=== PATIENT | male | born 1975 | race Two or more races ===

== ENCOUNTER 2018-07-13 17:59 | Emergency (ER) | payer OTHER ==
[2018-07-13] MEDS ORDERED: IBUPROFEN 600 MG TAB PO ONE (18:41)
--- NOTE | 2018-07-13 18:58 | EDPHY ---
H & P Time Seen by Provider: 07/13/18 18:02 HPI/ROS: CHIEF COMPLAINT: Right-sided back pain History by patient, and seen with phone snow ranger HISTORY OF PRESENT ILLNESS: 42-year-old otherwise healthy man presents complaining of pain on the right side of his back after he fell off of 3 ft truck while hauling wood where he landed on top of the wood approximately 4 hr prior to arrival. The truck was not moving. He denies hitting his head or losing consciousness. He denies neck pain, chest pain or abdominal pain or other injury. His back pain is slightly pleuritic. He denies any shortness of breath. He took some Tylenol with minimal relief. REVIEW OF SYSTEMS: As in HPI, and all other systems reviewed and are negative Smoking Status: Never smoked Physical Exam: General Appearance: Alert, nontoxic-appearing speaking full sentences. Head: normocephalic, atraumatic Eyes: Pupils equal and round, reactive to light, no pallor or injection. Extraocular movements intact Mouth: Mucous membranes moist. Respiratory: Normal, effort, lungs are clear to auscultation. No wheezes, rales or rhonchi. No sternal tenderness, positive tenderness to right lower ribs anteriorly Cardiovascular: Regular rate and rhythm. S1, S2, no murmurs, gallops or rubs appreciated Gastrointestinal: Abdomen is soft and nontender, no masses, bowel sounds normal. Back: Positive linear abrasion else of her right lower ribs posteriorly with marked tenderness, no step-off or crepitus, positive right CVA tenderness, Neurological: Awake, alert and oriented x 3, no pronator drift, normal gait, no pronator drift Skin: Warm and dry, no rashes. Musculoskeletal: No deformities or tenderness. Full range of motion Extremities: no edema, no tenderness, DP2+ bilat Psychiatric: Patient has normal affect, there is no agitation. Constitutional: Initial Vital Signs Temperature (C) 36.8 C 07/13/18 18:31 Heart Rate 82 07/13/18 18:31 Respiratory Rate 16 07/13/18 18:31 Blood Pressure 184/101 H 07/13/18 18:31 O2 Sat (%) 94 07/13/18 18:31 O2 Delivery Mode Room Air Allergies/Adverse Reactions: No Known Allergies Allergy (Verified 07/13/18 18:30) Home Medications: Medication Instructions Recorded Hydrocodone/APAP 5/325 [[place] 1 - 2 tab PO Q4H PRN #10 tab 07/13/18 5/325 (*)] MDM/Departure - MDM Imaging Results: Imaging Impressions Chest X-Ray 07/13/18 18:40 Impression: Negative chest. Consider rib detail films as clinically appropriate. Abdomen CT 07/13/18 19:07 Impression: Fractures of the posterior aspects of the right 10th, 11th, and 12th ribs, without pneumothorax or pleural hematoma. Results called to Dr. Buitrago at 8:00 p.m. Imaging: Discussed imaging studies w/ hand cloth examiner Radiologist, I viewed and interpreted images myself Medications Given: Discontinued Medications Diphtheria/Tetanus/Acell Pertussis (Boostrix) 0.5 ml IM .ONCE ONE Stop: 07/13/18 19:22 Last Admin: 07/13/18 19:24 Dose: 0.5 ml Ibuprofen (Motrin) 600 mg PO EDNOW ONE Stop: 07/13/18 18:42 Last Admin: 07/13/18 19:09 Dose: 600 mg ED Course/Re-evaluation: 42-year-old man presents with ongoing pain after falling off a truck landing on some wood. Was given ibuprofen in the ER for pain. X-ray is concerning for right lower rib fracture. There is no evidence of hemo or pneumothorax. UA was positive for blood and therefore we performed a CT scan to evaluate for internal injury. I discussed the CT with the radiologist. CT revealed 3 lower rib fractures but no hemopneumothorax or parenchymal injury. Patient remained hemodynamically stable. Will discharge home with pain control. We discussed home care return precautions. - Depart Disposition: Home, Routine, Self-Care Clinical Impression: Multiple rib fractures Qualifiers: Encounter type: initial encounter Fracture type: closed Laterality: right Qualified Code(s): S22.41XA - Multiple fractures of ribs, right side, initial encounter for closed fracture Condition: Fair Instructions: Rib Fracture (ED) Additional Instructions: You were seen by Dr. Allyson Buitrago today. You have broken ribs. Please take ibuprofen and pain medicine as needed. Return immediately if you develop any difficulty breathing, fever or other new problems. Return for any worsening or new concerns. Stand Alone Forms: Work Limited Duty, Work Excuse Prescriptions: Hydrocodone/APAP 5/325 [[place] 5/325 (*)] 1 - 2 tab PO Q4H PRN #10 tab PRN Reason: Pain, Moderate Referrals: NONE *PRIMARY CARE P,. [Primary Care Provider] - As per Instructions Print Language: Indian
[2018-07-13] MEDS ORDERED: IOPAMIDOL (ISOVUE-300) 100 ML BTL ONE (19:12)
[2018-07-13] MEDS ORDERED: TDAP ADULT 0.5 ML INJ (BOOSTRIX) IM ONE (19:21)
[2018-07-13] MEDS ORDERED: HYDROCOD/APAP 5/325 PREPACK#6 BTL TAKEHOME ONE (20:25)
[2018-07-13 21:10] VITALS: BP 179/118
== END 2018-07-13 20:47 | disposition home or self-care (01) ==
LOC: CED 17:59
DX: S22.41XA Multiple fractures of ribs, right side, initial encounter for closed fracture (principal); W17.89XA Other fall from one level to another, initial encounter; Y99.0 Civilian activity done for income or pay
CPT/HCPCS: 71046-PO; 74177-PO; 80048-ER; 85025-QW-ER; 90471-ER; 99285-ER; Q9967

== ENCOUNTER 2018-07-18 07:08 | Emergency (ER) | payer OTHER ==
[2018-07-18] MEDS ORDERED: NS 1,000 ML IV ONE (07:35)
[2018-07-18] MEDS ORDERED: ONDANSETRON 4 MG/2 ML VIAL IVP ONE (07:35)
[2018-07-18] MEDS ORDERED: HYDROmorphONE/DILAUDID 2 MG/ML INJ IVP ONE (07:35)
--- NOTE | 2018-07-18 07:45 | EDPHY ---
H & P Stated Complaint: HEADACHE, NAUSEA STARTED TODAY 0130AM, RECENT TRAUMA Time Seen by Provider: 07/18/18 07:15 HPI/ROS: CHIEF COMPLAINT: Headache, nausea HISTORY OF PRESENT ILLNESS: 42-year-old gentleman presents emergency department with a primary complaint of a severe headache as well as nausea. Patient was seen in the emergency department on 07/13 after falling off of a truck bed, approximately 3 ft, landing onto his right posterior chest. At that time he denies specific head trauma. He was diagnosed with 3 posterior rib fractures (ribs 10 11 and 12) based on chest x-ray and CT scan of the abdomen pelvis. There was no intra-abdominal pathology noted. Patient was discharged with [place]. Family reports that he developed nausea and headache and vomiting after using the [place] the next day. He then began using half tablet of [place] at night only and ibuprofen during the days to manage his pain. Sounds like he has had some days which are better and some days which are worse with respect to headache. Last night again he had severe headache and vomited 6 times throughout the night. Patient can identify no exacerbating or relieving factors. Reports the headache is the same whether he standing or laying. No prior history of significant headaches. Does complain of some occipital pain as well as severe frontal pain. No seizure, confusion, visual difficulties , numbness or tingling in the arms or legs, speech difficulties. Small amount of clear nasal discharge is noted on evaluation; patient reports this is because of vomiting. Otherwise denies rhinorrhea or fluid from his ears. Patient is Liberian-speaking only. He presents with his daughter. auto dealership porter was offered and the patient would prefer to use his daughter as sales representative gas service. No fever, chills, URI symptoms. Some residual chest discomfort with deep breathing and with vomiting but no shortness of breath. No palpitations. No diarrhea. No urinary complaints. No lightheadedness. REVIEW OF SYSTEMS: A comprehensive 10 system review of systems was reviewed and is otherwise negative aside from elements mentioned in the history of present illness and medical decision making. PAST MEDICAL HISTORY: Patient denies. 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 VITAL SIGNS Reviewed by me. Blood pressure 199/115. GENERAL: Well-developed, well-nourished, appears uncomfortable. Holding his forehead. Complaining of frontal head pain 12/10. HEENT: Atraumatic. Eyes: Pupils equal round reactive to light, extraocular movements are intact. No icterus, no injection. Mouth: moist mucous membranes. No erythema or lesions. Neck: Full range of motion of the neck. Supple with no adenopathy. Mild tenderness upper C-spine. No signs of meningismus, negative Kernig's, negative Brudzinski's. LUNGS: Clear to auscultation bilaterally, no wheezes, rhonchi or rales. CHEST: Healing linear abrasions are present over the lower posterior right chest wall. No crepitus palpated. CARDIAC: Regular rate and rhythm, no rubs, murmurs or gallops. ABDOMEN: Soft, no right upper quadrant tenderness, nontender, nondistended, bowel sounds normal. BACK: Mild right CVA tenderness. EXTREMITIES: No trauma. No edema. Range of motion is normal throughout. NEURO: Alert and oriented x3. Normal gait. Normal sensation. Motor strength 5/5 throughout. Cranial nerves 2-12 are intact. SKIN: Cool to the touch, no rash. PSYCHIATRIC: Normal mentation, no agitation. - Personal History Current Tetanus Diphtheria and Acellular Pertussis (TDAP): Yes Tetanus Vaccine Date: WITHIN 10 YRS - Medical/Surgical History Hx Asthma: No Hx Chronic Respiratory Disease: No Hx Diabetes: No Hx Cardiac Disease: No Hx Renal Disease: No Hx Cirrhosis: No Hx Alcoholism: No Hx HIV/AIDS: No Hx Splenectomy or Spleen Trauma: No Other PMH: denies - Social History Smoking Status: Never smoked Constitutional: Initial Vital Signs Temperature (C) 36.6 C 07/18/18 07:15 Heart Rate 80 07/18/18 07:15 Respiratory Rate 18 07/18/18 07:15 Blood Pressure 188/122 H 07/18/18 07:15 O2 Sat (%) 96 07/18/18 07:15 O2 Delivery Mode Room Air O2 (L/minute) 2 Allergies/Adverse Reactions: No Known Allergies Allergy (Verified 07/13/18 18:30) Home Medications: Medication Instructions Recorded Hydrocodone/APAP 5/325 [[place] 1 - 2 tab PO Q4H PRN #10 tab 07/13/18 5/325 (*)] Ondansetron Odt [Zofran Odt 4 mg 4 mg PO Q6 PRN #8 tab 07/18/18 (RX)] traMADol [Ultram 50 mg (*)] 50 mg PO Q4 PRN #20 tab 07/18/18 Medical Decision Making - Diagnostics Imaging Results: Imaging Impressions Cervical Spine CT 07/18/18 07:36 Impression: 1. No acute fracture or soft tissue swelling. 2. If the patient has persistent pain or neurologic deficits, consider cervical spine MRI. Findings discussed with Emergency Department physician, Yessy Harrington MD, on , 8:[address] 07/18/18 07:36 Impression: Negative. No acute fracture or evidence of acute intracranial injury. Findings discussed with Emergency Department physician, Yessy Harrington MD, on , 8:37 a.m. Chest X-Ray 07/18/18 07:37 Impression: Clear lungs. No pneumothorax or effusion. Imaging: Discussed imaging studies w/ inbound call center agent Radiologist, I viewed and interpreted images myself ED Course/Re-evaluation: 42-year-old male presenting with significant headache, and nausea. Head CT and cervical spine CT were negative for any acute traumatic findings. Chest x-ray: No pneumothorax or hemothorax. Patient IV placed received a L normal saline. CBC and chemistries are largely unremarkable. Patient received Dilaudid and Zofran. On re-examination he is resting much more comfortably. Reports his headache pain is 4/10. In light of the normal head CT and no concerning historical complaints of fever, stroke-like symptoms, or seizures, patient's headache was additionally treated with Toradol, Decadron, Reglan, and Benadryl. Patient was discharged in improved condition. Given the fact that a significant amount of his headache pain seems to be related to the [place], he was advised to use ibuprofen on a regular basis and was given a prescription for tramadol, and zofran. Differential Diagnosis: After history was obtained, and the physical exam performed, a differential for headache was considered including, but not limited to, subarachnoid hemorrhage, migraine headache, tension headache and infectious causes such as meningitis, sinusitis, encephalitis. - Data Points Laboratory Results: 07/18/18 07:42 POC Sodium 139 mEq/L mEq/L (135-145) POC Potassium 3.3 mEq/L mEq/L (3.3-5.0) POC Chloride 101.0 mEq/L mEq/L (97-110) POC Total CO2 32 mEq/L H mEq/L (22-31) POC BUN 9 mg/dL mg/dL (7-23) POC Creatinine 0.8 mg/dL mg/dL (0.7-1.3) POC Glucose 119 mg/dL H mg/dL (70-100) POC Calcium 9.0 mg/dL mg/dL (8.5-10.4) Medications Given: Discontinued Medications Dexamethasone (Decadron Injection) 10 mg IVP EDNOW ONE Stop: 07/18/18 08:46 Last Admin: 07/18/18 08:52 Dose: 10 mg Diphenhydramine HCl (Benadryl Injection) 25 mg IVP EDNOW ONE Stop: 07/18/18 08:46 Last Admin: 07/18/18 08:51 Dose: 25 mg Hydromorphone HCl (Dilaudid) 1 mg IVP EDNOW ONE Stop: 07/18/18 07:36 Last Admin: 07/18/18 07:47 Dose: 1 mg Sodium Chloride (Ns) 1,000 mls @ 0 mls/hr IV ONCE ONE; Wide Open PRN Reason: Protocol Stop: 07/18/18 07:36 Last Admin: 07/18/18 07:47 Dose: 1,000 mls Ketorolac Tromethamine (Toradol) 30 mg IVP EDNOW ONE Stop: 07/18/18 08:46 Last Admin: 07/18/18 08:52 Dose: 30 mg Metoclopramide HCl (Reglan Injection) 10 mg IVP EDNOW ONE Stop: 07/18/18 08:46 Last Admin: 07/18/18 08:52 Dose: 10 mg Ondansetron HCl (Zofran) 4 mg IVP EDNOW ONE Stop: 07/18/18 07:36 Last Admin: 07/18/18 07:46 Dose: 4 mg Point of Care Test Results: CBC CBC Collection Date 07/18/18 CBC Collection Time 07:35 WBC 11.5 RBC 5.34 HGB 16.1 HCT 47.7 PLT 341 Neut # 9.62 Neut 83.6 LYMPH # 1.25 LYMPH 10.9 MCV 89.3 Chemistry 07/18/18 07:42 POC Sodium 139 mEq/L mEq/L (135-145) POC Potassium 3.3 mEq/L mEq/L (3.3-5.0) POC Chloride 101.0 mEq/L mEq/L (97-110) POC Total CO2 32 mEq/L H mEq/L (22-31) POC BUN 9 mg/dL mg/dL (7-23) POC Creatinine 0.8 mg/dL mg/dL (0.7-1.3) POC Glucose 119 mg/dL H mg/dL (70-100) POC Calcium 9.0 mg/dL mg/dL (8.5-10.4) Departure - Departure Disposition: Home, Routine, Self-Care Clinical Impression: Headache Qualifiers: Headache type: unspecified Headache chronicity pattern: acute headache Intractability: not intractable Qualified Code(s): R51 - Headache Condition: Good Instructions: Acute Headache (ED) Additional Instructions: Please avoid additional doses of [place] if possible. Please use ibuprofen 600 mg every 8 hr with food on a regular basis for the next 1-2 days to help with residual headache pain. Please take Zofran if needed for ongoing nausea. Be sure you drink plenty of fluid as this will help with your headache discomfort. You been given a prescription for tramadol. You may use this if needed for severe pain that is not being controlled by the ibuprofen. Follow-up with workman's compensation before you return to work. Referrals: NONE *PRIMARY CARE P,. [Primary Care Provider] - As per Instructions Stand Alone Forms: Work Comp Follow Up Prescriptions: Ondansetron Odt [Zofran Odt 4 mg (RX)] 4 mg PO Q6 PRN #8 tab PRN Reason: Nausea traMADol [Ultram 50 mg (*)] 50 mg PO Q4 PRN #20 tab PRN Reason: Pain, Breakthrough
[2018-07-18] MEDS ORDERED: KETOROLAC 30 MG/1 ML SDV IVP ONE (08:45)
[2018-07-18] MEDS ORDERED: METOCLOPRAMIDE 10 MG/2 ML VIAL IVP ONE (08:45)
[2018-07-18] MEDS ORDERED: DEXAMETHASONE 10 MG/ML VIAL IVP ONE (08:45)
[2018-07-18 09:45] VITALS: BP 135/88
--- NOTE | 2018-07-19 15:19 | CPEKG ---
Test Reason : OPEN Blood Pressure : / mmHG Vent. Rate : 070 BPM Atrial Rate : 071 BPM P-R Int : 141 ms QRS Dur : 093 ms QT Int : 408 ms P-R-T Axes : 026 017 005 degrees QTc Int : 441 ms Sinus rhythm Atrial premature complex Left ventricular hypertrophy ST elev, probable normal early repol pattern Confirmed by Yessy Harrington ([id number]) on 07/19/2018 3:18:39 PM Referred By: Yessy Harrington Confirmed By:Yessy Harrington
== END 2018-07-18 10:02 | disposition home or self-care (01) ==
LOC: CED 07:08
DX: R51 Headache (principal); E86.9 Volume depletion, unspecified
CPT/HCPCS: 70450-PO; 71046-PO; 72125-PO; 80048-ER; 85025-QW-ER; 96361-ER; 96374-ER; 96375-ER; 99285-ER; J1100; J1170; J1200; J1885; J2405; J2765

== ENCOUNTER 2018-07-22 14:39 | Emergency (ER) | payer OTHER ==
--- NOTE | 2018-07-22 14:59 | EDPHY ---
H & P Time Seen by Provider: 07/22/18 14:59 HPI/ROS: HPI CHIEF COMPLAINT: Right Sided Rib Pain, Frontal Sharp headache, Vomiting x 1 HISTORY OF PRESENT ILLNESS: This patient is a 42-year-old male, he is Finnish- speaking only, full time staff interpreter was used for history review of systems. Additionally his previous 2 ER visits were reviewed. He was initially seen on , after he fell and injured his ribs. He had a CT scan at that time that showed 10th 11th and 12th rib fractures. He then subsequently came back to the emergency room and was seen on the 18 or 5 days later complaining of a frontal headache. At that time he had a negative CT scan head and cervical spine improved with a migraine cocktail. Now presents back to the emergency room for 3rd time with a frontal sharp stabbing headache. He states he woke up with this headache. Was initially gradually onset around 8:00 a.m. It started. He was not sudden onset it is not thunderclap headache. He describes the pain as sharp stabbing in the front of his head. Constant currently 10/10. It progressively got worse throughout the day. He did have 1 episode of vomiting. He denies any neck pain he denies focal weakness, denies numbness or tingling. He denies any chest pain or shortness of breath. He does complain that when he vomited 1 time this caused great deal of right lateral posterior rib pain. No shortness of breath and no pleuritic pain however patient complaining of 8/10 right lateral posterior rib pain. He denies any fever. He arrives to the emergency room accompanied by his daughter, his neurological exam is unremarkable with no focal neuro deficit. GCS 15. Cranial nerves are intact. Past Medical History: Denies significant medical history Past Surgical History: Denies significant surgical history Social History: Denies drugs alcohol tobacco currently. He does use alcohol occasionally. Family History: Noncontributory Of note full time staff interpreter was used for history review of systems. ROS REVIEW OF SYSTEMS: 10 Systems were reviewed and negative with the exception of the elements mentioned in the history of present illness. Exam Constitutional triage nursing summary reviewed, vital signs reviewed, awake/ alert. Hypertensive. Eyes normal conjunctivae and sclera, EOMI, PERRLA. HENT normal inspection, atraumatic, moist mucus membranes, no epistaxis, neck supple/ no meningismus, no raccoon eyes. Respiratory clear to auscultation bilaterally, normal breath sounds, no respiratory distress, no wheezing. Cardiovascular rate normal, regular rhythm, no murmur, no edema, distal pulses normal. Gastrointestinal soft, non-tender, no rebound, no guarding, normal bowel sounds, no distension, no pulsatile mass. Genitourinary no CVA tenderness. Musculoskeletal no midline vertebral tenderness, full range of motion, no calf swelling, no tenderness of extremities, no meningismus, good pulses, neurovascularly intact. Skin pink, warm, & dry, no rash, skin atraumatic. Neurologic normal neuro exam, cardiology teacher intact, awake, alert and oriented x 3, AAOx3 , moves all 4 extremities equally, motor intact, sensory intact, CN II-XII intact, normal cerebellar, normal vision, normal speech. Psychiatric normal mood/affect. Heme/Lymph/Immune no lymphadenopathy. Differential Diagnosis: Includes but is not limited to in a particular order migraine headache, tension headache, cluster headache, intracranial bleed, encephalitis, meningitis, rib fractures, pneumothorax, hemothorax, pneumonia, subarachnoid hemorrhage Medical Decision Making: Plan for this patient with frontal headache, additionally right-sided rib pain after vomiting x1 IV establishment IV fluids, migraine cocktail, chest x-ray two view, CT scan head without contrast, and re- evaluate. At this time this patient is a normal neurological exam I do not feel that he needs a spinal tap for meningitis encephalitis or subarachnoid hemorrhage. Re-evaluation: CT scan head without contrast negative for acute bleed or traumatic injury no evidence skull fracture or subdural. Cxr reviewed, no pneumonia, no pneumothorax. 1710: Patient re-evaluated this time resting comfortably. Headache is completely gone. 0/10 headache. He denies any neck pain or neck stiffness, his neck is supple with full range of motion. He has no meningeal signs on exam. He is afebrile. Initially came in very hypertensive his blood pressure is slightly improved after pain control here. He has received a migraine cocktail, IV Dilaudid, IV fluids, IV Toradol and is doing better. This CT scan head without contrast negative for anything acute. Patient re-examination is feeling much better. Normal neurological exam. Chest x-ray also reviewed. Labs reviewed. Patient still somewhat hypertensive will re-evaluate shortly after more time. Patient denies Cheung at this time, but still complains of some mild left rib pain, will give dose of tylenol. Re-eval Patient at this time 1712: Resting, nad. Feels much better. 1939: Patient re-evaluated this time resting comfortably without headache. Neurological exam unremarkable. No focal neuro deficit no focal numbness or tingling or focal weakness. Headache resolved. Blood pressure currently 159/ 101. I do recommend on an outpatient basis he follows up with a PCP, and keeps a close eye on his bp. Recommend close BP follow. We also discussed return precautions, return to ER if worsening symptoms, cheung, neck pain, vomiting, cp or sob or High BP . EKG interpretation by me on record in [employer] system. Impression time of EKG 1958, sinus rhythm rate of 62, LVH present, early repol pattern. Similar to previous EKG dated 07/18/2018. I do not appreciate acute ischemic change on this EKG. 2230: Patient re-evaluated this time resting comfortably is neurological exam is unchanged. No headache. No chest pain or shortness of breath patient is requesting discharge. He has been monitored for multiple hours in the emergency room and blood pressure slowly trended down he did receive 5 mg PO Norvasc, his headache is resolved. He had some right lateral lower rib pain that is resolved. Chest x-ray and CT scan reviewed. Patient also had an EKG due to hypertension. His troponin is negative. His EKG is stable from his previous EKG dated 07/18/2018. There is an early re-valentin pattern. We discussed return precautions. Return emergency room if worsening symptoms high blood pressure chest pain or shortness of breath. Norvasc for home. Follow up PCP. Patient was given a prescription for Norvasc. He understands this may need to be adjusted or another agent keep a close eye on your blood pressure medication and follow up with his PCP. Source: Patient - Personal History Tetanus Vaccine Date: WITHIN 10 YRS - Medical/Surgical History Hx Asthma: No Hx Chronic Respiratory Disease: No Hx Diabetes: No Hx Cardiac Disease: No Hx Renal Disease: No Hx Cirrhosis: No Hx Alcoholism: No Hx HIV/AIDS: No Hx Splenectomy or Spleen Trauma: No Other PMH: denies - Social History Smoking Status: Never smoked Constitutional: Initial Vital Signs Temperature (C) 37.1 C 07/22/18 14:50 Heart Rate 57 L 07/22/18 14:50 Respiratory Rate 16 07/22/18 14:50 Blood Pressure 206/112 H 07/22/18 14:50 O2 Sat (%) 95 07/22/18 14:50 O2 Delivery Mode Room Air O2 (L/minute) 1 Allergies/Adverse Reactions: No Known Allergies Allergy (Verified 07/22/18 14:48) Home Medications: Medication Instructions Recorded Hydrocodone/APAP 5/325 [[place] 1 - 2 tab PO Q4H PRN #10 tab 07/13/18 5/325 (*)] Ondansetron Odt [Zofran Odt 4 mg 4 mg PO Q6 PRN #8 tab 07/18/18 (RX)] traMADol [Ultram 50 mg (*)] 50 mg PO Q4 PRN #20 tab 07/18/18 amLODIPine BESYLATE [Norvasc 5 mg 5 mg PO DAILY #30 tab 07/22/18 (*)] Medical Decision Making - Data Points Medications Given: Discontinued Medications Acetaminophen (Tylenol) 1,000 mg PO EDNOW ONE Stop: 07/22/18 17:12 Last Admin: 07/22/18 17:23 Dose: 1,000 mg Amlodipine Besylate (Norvasc) 5 mg PO EDNOW ONE Stop: 07/22/18 20:35 Last Admin: 07/22/18 20:36 Dose: 5 mg Dexamethasone (Decadron Injection) 10 mg IVP EDNOW ONE Stop: 07/22/18 15:13 Last Admin: 07/22/18 15:29 Dose: 10 mg Diphenhydramine HCl (Benadryl Injection) 50 mg IVP EDNOW ONE Stop: 07/22/18 15:13 Last Admin: 07/22/18 15:29 Dose: 50 mg Hydromorphone HCl (Dilaudid) 1 mg IVP EDNOW ONE Stop: 07/22/18 15:12 Last Admin: 07/22/18 15:29 Dose: 1 mg Sodium Chloride (Ns) 1,000 mls @ 0 mls/hr IV ONCE ONE; Wide Open PRN Reason: Protocol Stop: 07/22/18 15:12 Last Admin: 07/22/18 15:28 Dose: 1,000 mls Sodium Chloride (Ns) 1,000 mls @ 0 mls/hr IV ONCE ONE PRN Reason: Wide Open Stop: 07/22/18 16:12 Last Admin: 07/22/18 16:13 Dose: 1,000 mls Ketorolac Tromethamine (Toradol) 30 mg IVP EDNOW ONE Stop: 07/22/18 15:13 Last Admin: 07/22/18 15:28 Dose: 30 mg Metoclopramide HCl (Reglan Injection) 10 mg IVP EDNOW ONE Stop: 07/22/18 15:13 Last Admin: 07/22/18 15:29 Dose: 10 mg Point of Care Test Results: CBC CBC Collection Date 07/22/18 CBC Collection Time 15:25 WBC 14.52 RBC 5.70 HGB 17.1 HCT 50.3 PLT 420 Neut # 12.29 Neut 84.7 LYMPH # 1.49 LYMPH 10.3 MCV 88.2 Chemistry 07/22/18 07/22/18 19:57 15:34 POC Sodium 141 mEq/L mEq/L (135-145) POC Potassium 4.1 mEq/L mEq/L (3.3-5.0) POC Chloride 98.0 mEq/L mEq/L (97-110) POC Total CO2 31 mEq/L mEq/L (22-31) POC BUN 10 mg/dL mg/dL (7-23) POC Creatinine 0.7 mg/dL mg/dL (0.7-1.3) POC Glucose 112 mg/dL H mg/dL (70-100) POC Calcium 9.7 mg/dL mg/dL (8.5-10.4) POC Total Bilirubin 1.4 mg/dL mg/dL (0.1-1.4) POC AST 25 IU/L IU/L (17-59) POC ALT 27 IU/L IU/L (21-72) POC Alk Phosphatase 109 IU/L IU/L (38-126) POC Troponin I 0.00 ng/mL ng/mL (0.00-0.08) POC Total Protein 8.5 g/dL H g/dL (6.3-8.2) POC Albumin 4.4 g/dL g/dL (3.5-5.0) Departure - Departure Disposition: Home, Routine, Self-Care Clinical Impression: Rib pain Hypertension Qualifiers: Hypertension type: essential hypertension Qualified Code(s): I10 - Essential ( primary) hypertension Headache Qualifiers: Headache type: unspecified Headache chronicity pattern: acute headache Intractability: not intractable Qualified Code(s): R51 - Headache Condition: Good Instructions: Rib Fracture (ED), Acute Headache (ED), Hypertension (ED), Rib Contusion (ED) Additional Instructions: 1. Return to the emergency room if he develops worsening symptoms. This includes high blood pressure, worsening headache, vomiting, not doing well 2. I recommend you follow up with a primary care doctor. I will refer you to [facility]. 3. You should watch your blood pressure closely. Keep a log of it. Referrals: NONE *PRIMARY CARE P,. [Primary Care Provider] - As per Instructions [facility],. [Clinic] - As per Instructions [facility]. [Clinic] - As per Instructions Prescriptions: amLODIPine BESYLATE [Norvasc 5 mg (*)] 5 mg PO DAILY #30 tab Print Language: Finnish
[2018-07-22] MEDS ORDERED: NS 1,000 ML IV ONE ×2 (15:11→16:11)
[2018-07-22] MEDS ORDERED: HYDROmorphONE/DILAUDID 2 MG/ML INJ IVP ONE (15:11)
[2018-07-22] MEDS ORDERED: DEXAMETHASONE 10 MG/ML VIAL IVP ONE (15:12)
[2018-07-22] MEDS ORDERED: KETOROLAC 30 MG/1 ML SDV IVP ONE (15:12)
[2018-07-22] MEDS ORDERED: METOCLOPRAMIDE 10 MG/2 ML VIAL IVP ONE (15:12)
[2018-07-22] MEDS ORDERED: ACETAMINOPHEN 500 MG TAB PO ONE (17:11)
[2018-07-22] MEDS ORDERED: amLODIPine BESYLATE 5 MG TAB PO ONE (20:34)
[2018-07-22 22:32] VITALS: BP 162/102
--- NOTE | 2018-07-28 06:32 | CPEKG ---
Test Reason : OPEN Blood Pressure : / mmHG Vent. Rate : 062 BPM Atrial Rate : 060 BPM P-R Int : 130 ms QRS Dur : 093 ms QT Int : 416 ms P-R-T Axes : 029 008 001 degrees QTc Int : 423 ms Sinus rhythm Left ventricular hypertrophy ST elev, probable normal early repol pattern Confirmed by Alton Novoa ([id number]) on 07/28/2018 6:31:24 AM Referred By: Alton Novoa Confirmed By:Alton Novoa
== END 2018-07-22 22:31 | disposition home or self-care (01) ==
LOC: CED 14:39
DX: S22.41XD Multiple fractures of ribs, right side, subsequent encounter for fracture with routine healing (principal); R51 Headache; I10 Essential (primary) hypertension; W19.XXXA Unspecified fall, initial encounter
CPT/HCPCS: 70450-PO; 71046-PO; 80053-ER; 84484-ER; 85025-QW-ER; 96361-ER; 96374-ER; 96375-ER; 99285-ER; J1100; J1170; J1200; J1885; J2765